=== PATIENT | male | born 1975 | race Caucasian/White ===

== ENCOUNTER 2025-06-14 15:55 | Emergency (ER) | payer OTHER, SELFPAY ==
[2025-06-14 16:04] VITALS: BP 153/94
[2025-06-14 16:41] LABS: Hematocrit 44.5 % (39.0-52.0); Hemoglobin 15.0 g/dL (13.0-18.0); Mean Corp Hgb Conc. 33.7 g/dL (33.0-37.0); Mean Corpuscular Volume 85.6 fL (80.0-94.0); Nucleated Red Blood Cells % 0 % (-); Platelet Count 289 10^3/uL (130-400); Red Cell Dist. Width 13.1 % (11.5-14.5)
[2025-06-14 17:04] LABS: ALT (SGPT) 39 U/L (0-50); AST (SGOT) 26 U/L (17-59); Albumin 4.6 g/dl (3.5-5.0); Alkaline Phosphatase 58 U/L (38-126); Blood Urea Nitrogen 14 mg/dl (9-20); Calcium 9.5 mg/dl (8.4-10.2); Carbon Dioxide 27 mmol/L (22-30); Chloride 104 mmol/L (98-107); Glucose 121 mg/dl (70-99); Potassium 4.4 mmol/L (3.5-5.1); Sodium 139 mmol/L (135-145); Total Protein 7.2 g/dl (6.3-8.2); eGFR > 60.00
[2025-06-14 17:13] LABS: Troponin I 0.022 ng/ml
--- NOTE | 2025-06-14 22:07 | ED.GENMED ---
History of Present Illness
General
Chief Complaint: Chest Pain
Source: patient
Exam Limitations: none
Time Seen by Provider: 06/14/25 21:59
History of Present Illness
History of Present Illness:
See MDM
Past History
Past History
ED Past Medical History: None
ED Past Surgical History: None
Social History
Tobacco: Non-smoker
Alcohol: None
Phy Exam
Physical Exam
Physical Exam:
See MDM
Scores
Heart Score for Chest Pain Patients
STEMI patient?: No
History: Slightly or Non-Suspicious
ECG: Normal
Age: >45 - <65 years
Risk Factors: 1 or 2 Risk Factors
Troponin: </= Normal Limit
Heart Score for Chest Pain Patients: 2
Heart Score Risk: 2.5% MACE over next 6 weeks
Course
Orders/Labs/Results
Orders:
Orders
06/14/25 15:56
Electrocardiogram (*1) Urgent
Reason for Study: Chest Pain
EKG- Treatment ONCE
06/14/25 16:27
CMP [Comprehensive Metabolic Panel] Urgent
Complete Blood Count/With Diff Urgent
Troponin I Urgent
06/14/25 22:06
CR Chest - 2 Views Urgent
Comment:
Reason For Exam: chest pressure
06/14/25 22:11
Troponin I Urgent
Abnormal Lab Results
06/14/25
16:27
Glucose 121 H mg/dl
(70-99)
06/14/25 16:27
06/14/25 16:27
Vital Signs
Initial and Last Documented VS:
Initial Vital Signs
Temp Pulse Resp BP Pulse Ox
98.5 F 101 18 153/94 98
06/14/25 16:04 06/14/25 16:04 06/14/25 16:04 06/14/25 16:04 06/14/25 16:04
Last Documented Vital Signs
Temp Pulse Resp BP Pulse Ox
98.5 F 87 6 156/98 98
06/14/25 16:04 06/14/25 23:02 06/14/25 23:02 06/14/25 23:02 06/14/25 23:02
MDM/Problems Addressed
Differential Diagnosis Includes:
Note:
CHIEF COMPLAINT(S)
Chest pain.
HISTORY OF PRESENT ILLNESS
The patient is a 50-year-old male who presents with ongoing chest pain described as 'cardiac' and accompanied by cold sweat, cold feet, and cold hands. Symptoms have persisted without cessation. The patient reports that the pain is not as severe as
prior episodes. The chest pain began at 3 oclock, and despite continued symptoms, earlier cardiac workup, including an EKG, appears normal. The patient has a history of similar chest pain episodes, which previously resolved with the administration
of aspirin. The last episode occurred a couple of weeks ago.
PHYSICAL EXAM
General: Alert, no acute distress.
Skin: Warm, dry.
Head: Normocephalic, atraumatic
Neck: Appears supple, trachea midline.
Eyes, Ears, Nose, Mouth, and Throat: Moist mucous membranes
Cardiovascular: No signs of cyanosis. Regular rate and rhythm
Respiratory: Respirations are non-labored. Lungs clear
Abdomen: Non-distended
Musculoskeletal: No deformities. No leg tenderness or edema
Neurological: No focal neurological deficit observed.
Psychiatric: Cooperative, appropriate mood and affect.
PLAN
- Reevaluate blood tests and chest X-ray for further assessment.
- If all results are normal, provide cardiology follow-up information for the patient.
DIFFERENTIAL DIAGNOSIS
The Differential Diagnosis includes, in no particular order and is not limited to:
- Myocardial ischemia
- Atypical angina
- Costochondritis
- Gastroesophageal reflux disease (GERD)
- Pulmonary embolism
- Anxiety disorder
- Pneumonia
- Pericarditis
- Musculoskeletal chest pain
- Arrhythmia
SUMMARY OF ENCOUNTER
The patient was seen in the emergency department for persistent chest pain with associated symptoms. Initial EKG results were normal, and previous echocardiography was reportedly unremarkable. Management included further evaluation with repeat blood
work and chest X-ray to ensure there are no cardiac abnormalities before potential discharge.
DISPOSITION
Pending.
MEDICAL DECISION MAKING
- Complexity of Data Reviewed: Chronic conditions affecting care - Discuss chest pain with prior episodes resolving with aspirin. Differential diagnoses considered.
- Data:
Category 1:
- Tests ordered: Repeat troponin, chest X-ray.
- Risk:
- Consideration of Admission/Observation: Escalation of care including admission/observation was considered given the complexity and risk of the patients presenting complaint, exam findings, and/or underlying comorbidities. However, ultimately the
patient may be safe for outpatient management with close follow up. Reasoning: Work-up reassuring, does not reveal any acute life/organ threatening processes, patients symptoms well controlled upon reevaluation, reexamination is reassuring, vitals
are stable, patient agreeable with discharge, reliable for follow-up.
DIAGNOSIS
- Chest pain, unspecified (ICD-10: R07.9)
- Suspected musculoskeletal-related chest pain (ICD-10: M25.50)
My independent EKG interpretation is:
- Time of EKG: Not specified
- Rhythm: Normal sinus rhythm
- Heart rate: 84 beats per minute
- MO interval: Within normal limits
- QRS duration: Within normal limits
- QT interval: Within normal limits
- [place]: Normal
- Abnormalities: No ST elevation noted
SUMMARY OF ENCOUNTER
The patient presented with several hours of consistent chest pressure. Upon evaluation in the emergency department, troponin levels were negative on two occasions, reducing the likelihood of acute coronary syndrome (ACS). An EKG revealed no ischemic
changes, and the chest X-ray showed no acute disease. The patient appeared well upon multiple reassessments and felt comfortable to return home. A referral was provided for outpatient follow-up with cardiology.
PLAN
- Provide the patient with information for cardiology follow-up to discuss potential outpatient management of symptoms.
INDEPENDENT REVIEW OF LABS AND INTERPRETATION OF TESTS
- My independent review of troponin levels indicated negative results on two separate occasions.
- My independent chest x-ray interpretation shows no acute disease.
MEDICATION RECONCILIATION
- Prescription medication was considered; aspirin as per prior successful treatment.
MEDICAL DECISION MAKING
- Number and Complexity of Problems Addressed: Chronic conditions affecting care include a history of similar chest pain episodes. Differential diagnoses considered include myocardial ischemia, atypical angina, costochondritis, gastroesophageal
reflux disease (GERD), pulmonary embolism, anxiety disorder, pneumonia, pericarditis, musculoskeletal chest pain, and arrhythmia.
- Data:
Category 1:
- My independent interpretation of the chest X-ray shows no acute disease.
Category 2:
- My independent EKG interpretation showed no ischemic changes.
- Risk:
- Consideration of Admission/Observation: Escalation of care including admission/observation was considered given the complexity and risk of the patients presenting complaint, exam findings, and/or their underlying comorbidities. However,
ultimately, I feel the patient is safe for outpatient management with close follow-up. Reasoning: Work-up reassuring, does not reveal any acute life/organ threatening processes, patients symptoms well controlled upon reevaluation, reexamination is
reassuring, vitals are stable, patient agreeable with discharge, reliable for follow-up.
DIAGNOSIS
- Chest pain, unspecified (ICD-10: R07.9)
- Suspected musculoskeletal-related chest pain (ICD-10: M25.50)
*Pulse Oximetry
SaO2: 99
Oxygen Mode of Delivery: Room air
Patient hypoxic: no
*Critical Care Note
Total Time (30-74mins, 75-104mins- exclusive of procedures): Not Applicable
ED Attending Note
-
Portions of this chart may have been created with voice recognition software.� Occasional wrong word or��sound alike� substitutions may have occurred due to the inherent limitations of voice recognition software.
Discharge Plan
Departure
Patient Disposition: Home (Routine Discharge)
Date of Disposition: 06/14/25
Time of Disposition: 23:25
Patient with high blood pressure during this ER visit?: Yes
Discharge Problem:
Chest pressure
Instructions: Chest Pain PCP Follow Up, BLOOD PRESSURE
Referrals:
Robe Alas MD [Active, Cardiology]
Activity Restrictions/Additional Instructions:
Please return for any worsening symptoms.
You may return at any time if you have further concerns.
Please follow up with your doctor at the first available appointment, preferably this week.
Please call the tower switch operator for first available appointment.
Thank you for choosing [facility].
Interventions
Interventions:
*Risk Screen - Suicide Last Done: 06/14/25 16:06
*General Assessment Last Done: 06/14/25 22:02
*Neglect/Abuse Screening Last Done: 06/14/25 16:06
*ED- Fall Risk Assessment Last Done: 06/14/25 22:02
*ED COVID-19 Vaccine History Last Done: 06/14/25 22:02
*ED Influenza Vaccine History Last Done: 06/14/25 22:02
ED- Cardiac Assessment Last Done: 06/14/25 22:02
Discharge Date and Time
Print Language: [email or web address]
[2025-06-14 22:43] LABS: Troponin I 0.018 ng/ml
[2025-06-14 23:02] VITALS: BP 156/98
== END 2025-06-14 23:41 | disposition home or self-care (01) ==
LOC: EMR 15:55
PROVIDERS: Student in an Organized Health Care Education/Training Program; EMERGENCY PHYSICIAN Student in an Organized Health Care Education/Training Program; FAMILY PHYSICIAN Student in an Organized Health Care Education/Training Program
DX: R07.89 Other chest pain (principal)
CPT/HCPCS: 99283; 71046; 80053; 84484; 85025; 93005